=== PATIENT | male | born 1980 | race Caucasian/White ===

== ENCOUNTER 2020-08-19 19:27 | Inpatient (IN) | payer OTHER ==
[2020-08-19] MEDS ORDERED: SODIUM CHLORIDE 0.9% 1,000 ML IV STA (19:32)
[2020-08-19] MEDS ORDERED: DIPH,PERTUS(ACELL)TETVAC-LF 0.5 ML VIAL IM ONE (19:32)
[2020-08-19 19:42] LABS: Glucose,Whole Blood 161 mg/dL (75-99)
--- NOTE | 2020-08-19 19:43 | ED ---
General Adult HPI - General Chief complaint: Head Injury Stated complaint: Trauma Time Seen by Provider: 08/19/20 19:30 Source: patient, EMS Mode of arrival: EMS Limitations: no limitations - History of Present Illness Initial comments: Patient presents to the ED by ambulance for evaluation. Per EMS, the patient reportedly fell off of a hover board, striking his head on the ground, and he was being transported to the ED for evaluation of head injury. Per EMS, just prior to ED arrival, the patient became bradycardic, then briefly went asystolic. Per EMS, they began chest compressions, then the patient quickly regained a pulse and heartbeat. Patient is currently only complaining of having a posterior headache where he struck his head. Patient admits to LOC at the time of his head injury. Patient admits to marijuana use, but he denies any ot her illicit drug use. Patient denies medication abuse or overdose. Patient denies alcohol use. Patient denies medication use. Patient states that he is unsure of his last tetanus shot. Patient denies focal numbness/weakness/neuro deficit, visual changes, neck/back/extremity pain, chest pain, dyspnea, palpitations, abdominal pain, nausea/vomiting, or any other symptoms or complaints. Patient was upgraded to a level II trauma alert upon arrival to the ED. - Related Data Home Medications Medication Instructions Recorded Confirmed No Known Home Medications 08/19/20 08/19/20 Allergies Allergy/AdvReac Type Severity Reaction Status Date / Time No Known Allergies Allergy Verified 08/19/20 20:38 Review of Systems ROS Statement: Those systems with pertinent positive or pertinent negative responses have been documented in the HPI. ROS Other: All systems not noted in ROS Statement are negative. Past Medical History Past Medical History: No Reported History Additional Past Medical History / Comment(s): heart murmer x 2 as child. History of Any Multi-Drug Resistant Organisms: None Reported Past Surgical History: Appendectomy Additional Past Surgical History / Comment(s): ear canal surgery Past Psychological History: No Psychological Hx Reported Smoking Status: Never smoker Past Alcohol Use History: None Reported Past Drug Use History: None Reported General Exam Limitations: no limitations General appearance: alert Head exam: Present: other (Left occipital scalp abrasion) Eye exam: Present: normal appearance, PERRL, EOMI ENT exam: Present: mucous membranes moist, TM's normal bilaterally Neck exam: Present: normal inspection, other (Trachea is in midline). Absent: tenderness Respiratory exam: Present: normal lung sounds bilaterally. Absent: respiratory distress, wheezes, rales, rhonchi, stridor, chest wall tenderness Cardiovascular Exam: Present: regular rate, normal rhythm, normal heart sounds, other (Normal radial pulses bilaterally) GI/Abdominal exam: Present: soft. Absent: distended, tenderness, guarding Extremities exam: Present: full ROM, other (Pelvis is stable and nontender). Absent: tenderness, pedal edema Back exam: Present: normal inspection. Absent: tenderness Neurological exam: Present: alert, oriented X3, CN II-XII intact. Absent: motor sensory deficit Psychiatric exam: Present: normal affect, normal mood Skin exam: Present: warm, diaphoretic, pallor Course Vital Signs 08/19/20 19:28 Temperature 98.2 F Pulse Rate 86 Respiratory 18 Rate Blood Pressure 138/93 O2 Sat by Pulse 94 L Oximetry - Reevaluation(s) Reevaluation #1: 08/19/20 19:46 Case, H&P and pending ED workup were discussed with Dr. Maria (trauma surgery). I have explained to her that a trauma 2 alert was called given EMS's report of patient becoming asystolic on route to the ED. I also explained to her that the patient will need to be admitted to the hospital for cardiac monitoring at minimum. She states that if the patient's head CT is negative, then the patient should be admitted to the medical service with her (trauma surgery) on consult. She has no further recommendations at this time. 08/19/20 21:21 Patient remains alert and breathing comfortably. Patient denies development of any new symptoms while in the ED. Patient remains in normal sinus rhythm on the telemetry monitor with normal vital signs. Patient, and [id number] are aware the patient's test results, and they all agree with hospital admission at this time. 08/19/20 21:25 Case, H&P, test results, ED management and my discussion with Dr. Maria as above were discussed with Dr. Flores. He accepts hospital admission. He agrees with cardiology and trauma surgery consultation. He has no further recommendations at this time. 08/19/20 21:50 Case, H&P and test results were discussed with Dr. Granda (b2b sales professional). He does not feel that this patient needs be admitted to the ICU, and he recommends placing the patient on the third floor with telemetry. He has no further recommendations at this time. EKG Findings - EKG Comments: EKG Findings:: Normal sinus rhythm, ventricular rate of 93 bpm, normal IL and QRS intervals, normal QT interval, normal axis, no ST or T-wave abnormality, U wave is present Medical Decision Making - Medical Decision Making Patient's CT head and cervical spine are negative. Patient's chest x-ray is also negative. Patient's labs are fairly unremarkable other than an elevated lactic acid level of 3.0. Patient has been treated with IV fluids and a tetanus shot in the ED. Given EMS's report that the patient became asystolic on route to the ED, will admit the patient to the hospital under care of the medical service (by recommendation of the flight communications officer trauma surgeon) for cardiac monitoring with cardiology and trauma surgery consultation. Dr. Flores has accepted hospital admission. - Lab Data Result diagrams: 08/19/20 19:40 08/19/20 19:40 Lab Results 08/19/20 08/19/20 08/19/20 Range/Units 19:38 19:38 19:40 WBC 15.6 H (3.8-10.6) k/uL RBC 5.05 (4.30-5.90) m/uL Hgb 15.7 (13.0-17.5) gm/dL Hct 44.7 (39.0-53.0) % MCV 88.5 (80.0-100.0) fL MCH 31.1 (25.0-35.0) pg MCHC 35.2 (31.0-37.0) g/dL RDW 12.5 (11.5-15.5) % Plt Count 270 (150-450) k/uL MPV 8.3 PT (9.0-12.0) sec INR (<1.2) APTT (22.0-30.0) sec Sodium (137-145) mmol/L Potassium (3.5-5.1) mmol/L Chloride (98-107) mmol/L Carbon Dioxide (22-30) mmol/L Anion Gap mmol/L BUN (9-20) mg/dL Creatinine (0.66-1.25) mg/dL Est GFR (CKD-EPI)AfAm (>60 ml/min/1.73 sqM) Est GFR (CKD-EPI)NonAf (>60 ml/min/1.73 sqM) Glucose (74-99) mg/dL POC Glucose (mg/dL) 161 H (75-99) mg/dL POC Glu Copy Cutter ID Marroquin Fern Plasma Lactic Acid Nick (0.7-2.0) mmol/L Calcium (8.4-10.2) mg/dL Magnesium (1.6-2.3) mg/dL Total Bilirubin (0.2-1.3) mg/dL AST (17-59) U/L ALT (4-49) U/L Alkaline Phosphatase (38-126) U/L Troponin I (0.000-0.034) ng/mL NT-Pro-B Natriuret Pep pg/mL Total Protein (6.3-8.2) g/dL Albumin (3.5-5.0) g/dL Serum Alcohol mg/dL Blood Type Blood Type Confirm O Positive Blood Type Recheck Bld Type Recheck Status Antibody Screen Spec Expiration Date 08/19/20 08/19/20 08/19/20 Range/Units 19:40 19:40 19:40 WBC (3.8-10.6) k/uL RBC (4.30-5.90) m/uL Hgb (13.0-17.5) gm/dL Hct (39.0-53.0) % MCV (80.0-100.0) fL MCH (25.0-35.0) pg MCHC (31.0-37.0) g/dL RDW (11.5-15.5) % Plt Count (150-450) k/uL MPV PT 10.4 (9.0-12.0) sec INR 1.0 (<1.2) APTT 21.1 L (22.0-30.0) sec Sodium 140 (137-145) mmol/L Potassium 3.4 L (3.5-5.1) mmol/L Chloride 103 (98-107) mmol/L Carbon Dioxide 26 (22-30) mmol/L Anion Gap 11 mmol/L BUN 18 (9-20) mg/dL Creatinine 1.17 (0.66-1.25) mg/dL Est GFR (CKD-EPI)AfAm >90 (>60 ml/min/1.73 sqM) Est GFR (CKD-EPI)NonAf 79 (>60 ml/min/1.73 sqM) Glucose 156 H (74-99) mg/dL POC Glucose (mg/dL) (75-99) mg/dL POC Glu Copy Cutter ID Plasma Lactic Acid Nick 3.0 H* (0.7-2.0) mmol/L Calcium 9.5 (8.4-10.2) mg/dL Magnesium 2.1 (1.6-2.3) mg/dL Total Bilirubin 0.2 (0.2-1.3) mg/dL AST 33 (17-59) U/L ALT 28 (4-49) U/L Alkaline Phosphatase 88 (38-126) U/L Troponin I (0.000-0.034) ng/mL NT-Pro-B Natriuret Pep pg/mL Total Protein 7.0 (6.3-8.2) g/dL Albumin 4.4 (3.5-5.0) g/dL Serum Alcohol <10 mg/dL Blood Type Blood Type Confirm Blood Type Recheck Bld Type Recheck Status Antibody Screen Spec Expiration Date 08/19/20 08/19/20 08/19/20 Range/Units 19:40 19:40 19:43 WBC (3.8-10.6) k/uL RBC (4.30-5.90) m/uL Hgb (13.0-17.5) gm/dL Hct (39.0-53.0) % MCV (80.0-100.0) fL MCH (25.0-35.0) pg MCHC (31.0-37.0) g/dL RDW (11.5-15.5) % Plt Count (150-450) k/uL MPV PT (9.0-12.0) sec INR (<1.2) APTT (22.0-30.0) sec Sodium (137-145) mmol/L Potassium (3.5-5.1) mmol/L Chloride (98-107) mmol/L Carbon Dioxide (22-30) mmol/L Anion Gap mmol/L BUN (9-20) mg/dL Creatinine (0.66-1.25) mg/dL Est GFR (CKD-EPI)AfAm (>60 ml/min/1.73 sqM) Est GFR (CKD-EPI)NonAf (>60 ml/min/1.73 sqM) Glucose (74-99) mg/dL POC Glucose (mg/dL) (75-99) mg/dL POC Glu Copy Cutter ID Plasma Lactic Acid Nick (0.7-2.0) mmol/L Calcium (8.4-10.2) mg/dL Magnesium (1.6-2.3) mg/dL Total Bilirubin (0.2-1.3) mg/dL AST (17-59) U/L ALT (4-49) U/L Alkaline Phosphatase (38-126) U/L Troponin I <0.012 (0.000-0.034) ng/mL NT-Pro-B Natriuret Pep 39 pg/mL Total Protein (6.3-8.2) g/dL Albumin (3.5-5.0) g/dL Serum Alcohol mg/dL Blood Type O Positive Blood Type Confirm Blood Type Recheck No Previous Record Bld Type Recheck Status CABO Indicated Antibody Screen NEGATIVE Spec Expiration Date 08/22/2020 - 6133 - Radiology Data Radiology results: report reviewed (Noncontrast head CT is negative; noncontrast cervical spine CT is negative; chest x-ray is negative) Critical Care Time Critical Care Time: Yes Total Critical Care Time: 45 Disposition Clinical Impression: Head injury, Scalp contusion, Scalp abrasion, Cardiac arrest Disposition: ADMITTED IP TO THIS [facility] Condition: Stable Is patient prescribed a controlled substance at d/c from ED?: No Referrals: None,Stated [Primary Care Provider] - 1-2 days Time of Disposition: 21:26
--- NOTE | 2020-08-19 19:54 | XR ---
EXAMINATION TYPE: XR chest 1V portable DATE OF EXAM: 08/19/2020 COMPARISON: NONE HISTORY: Pain. Fall. TECHNIQUE: Single view FINDINGS: Heart and mediastinum are normal. Lungs are clear. Diaphragm is normal. Bony thorax is inta ct. IMPRESSION: Normal chest. Normal heart.
[2020-08-19 20:04] LABS: ALT 28 U/L (4-49); AST 33 U/L (17-59); African American GFR (CKD) >90 (>60 ml/min/1.73 sqM); Albumin 4.4 g/dL (3.5-5.0); Alcohol <10 mg/dL; Alkaline Phosphatase 88 U/L (38-126); Anion Gap 11 mmol/L; Blood Urea Nitrogen 18 mg/dL (9-20); Calcium 9.5 mg/dL (8.4-10.2); Carbon Dioxide 26 mmol/L (22-30); Chloride 103 mmol/L (98-107); Glucose 156 mg/dL (74-99); Magnesium 2.1 mg/dL (1.6-2.3); Non-African American GFR(CKD) 79 (>60 ml/min/1.73 sqM); Potassium 3.4 mmol/L (3.5-5.1); Sodium 140 mmol/L (137-145); Total Bilirubin 0.2 mg/dL (0.2-1.3)
--- NOTE | 2020-08-19 20:08 | CT ---
EXAMINATION TYPE: CT brain curtine wo con DATE OF EXAM: 08/19/2020 COMPARISON: None HISTORY: Fall with head injury. CT DLP: 1471.7 mGycm Automated exposure control for dose reduction was used. Images obtained of the brain and cervical spine without contrast. Ventricles and sulci appear normal. There is no mass effect nor midline shift. There is no sign of in tracranial hemorrhage. The calvarium is intact. The skull base is intact. There is mild mucosal thick ening in the left maxillary sinus. Cervical vertebra show some straightening. Disc spaces are normal. Posterior elements are intact. Fac et joints are intact. There is no evidence of a fracture. There is normal aeration of the mastoid sin uses. The skull base is intact. IMPRESSION: Negative CT scan of the cervical spine. Negative CT scan of the brain. Minimal left maxillary sinusitis.
[2020-08-19 20:10] LABS: Prothrombin Time 10.4 sec (9.0-12.0)
[2020-08-19] MEDS ORDERED: SODIUM CHLORIDE 0.9% 1,000 ML IV ONE (20:12)
[2020-08-19 20:30] LABS: Partial Thromboplastin Time 21.1 sec (22.0-30.0)
[2020-08-19 21:07] LABS: Basophils # (A) 0.1 k/uL (0-0.2); Basophils % (A) 1 %; Eosinophils # (A) 0.4 k/uL (0-0.7); Eosinophils % (A) 3 %; HCT 44.7 % (39.0-53.0); HGB 15.7 gm/dL (13.0-17.5); Lymphocytes # (A) 6.7 k/uL (1.0-4.8); Lymphocytes % (A) 43 %; MCH 31.1 pg (25.0-35.0); MCHC 35.2 g/dL (31.0-37.0); MCV 88.5 fL (80.0-100.0); Mean Platelet Volume 8.3; Monocytes % (A) 6 %; Neutrophils # (A) 6.8 k/uL (1.3-7.7); Neutrophils % (A) 44 %; Platelet Count 270 k/uL (150-450); RBC 5.05 m/uL (4.30-5.90); RDW 12.5 % (11.5-15.5); WBC 15.6 k/uL (3.8-10.6)
[2020-08-19 22:12] LABS: Appearance,Urine Clear (Clear); Bilirubin,Urine Negative (Negative); Blood,Urine Negative (Negative); Color,Urine Light Yellow; Glucose,Urine (UA) Negative (Negative); Ketones,Urine Negative (Negative); Leukocyte Esterase,Urine Negative (Negative); Nitrite,Urine Negative (Negative); PH, Urine 6.5 (5.0-8.0); Protein,Urine Negative (Negative); Specific Gravity,Urine 1.015 (1.001-1.035); Urobilinogen,Urine <2.0 mg/dL (<2.0)
[2020-08-19 22:28] LABS: Amphetamine Screen,Urine Not Detected (NotDetected); Barbiturate Screen,Urine Not Detected (NotDetected); Benzodiazepines Screen,Urine Not Detected (NotDetected); Cocaine Screen,Urine Not Detected (NotDetected); Methadone Screen, Urine Not Detected (NotDetected); Opiate Screen,Urine Not Detected (NotDetected); Oxycodone Screen, Urine Not Detected (NotDetected); Phencyclidine Screen,Urine Not Detected (NotDetected); Tricyclic Antidepressant,Urine Not Detected (NotDetected); Urn Cannabinoid Scrn Detected (NotDetected)
[2020-08-19] MEDS ORDERED: NALOXONE 0.4 MG/ML 1 ML VIAL IV PRN (23:56)
[2020-08-20] MEDS: SODIUM CHLORIDE 0.9% 1,000 ML IV SCH ×3 (00:03→15:00)
--- NOTE | 2020-08-20 00:06 | P.HPIM ---
History of Present Illness H&P Date: 08/19/20 Chief Complaint: Syncope 39-year-old male no significant past medical history Patient comes in after sustaining 2 episodes of syncope. He was at home outside using however board when he lost his balance and fell he passed out for 45 seconds family was around him to come inside he had the abrasion on his head was bleeding his packet for him, then 5 minutes later he got up on his own went to the kitchen and he was telling his that he's feeling dizzy before finishing the symptoms he collapsed he sat up immediately, however he was confused and not completely with it, he reports that he didn't get fully aware of his surroundings until 10 PM at the hospital a few hours later from the incident. called EMS while in route he had bradycardia and EMS started brief CPR with outpatient medications and then Grandy was achieved Patient denies any history of seizures or syncope denies any palpitations chest pain or trouble breathing. He denies taking any medications or supplements he denies any recent travel or any recent viral illnesses he denies any history of blood clots. He currently feels back to normal and he is wishing to go home In the ED workup was pretty much unremarkable chest x-ray and CT of the brain and C-spine and both were unremarkable Lactic acid was elevated EKG was unremarkable Potassium slightly low at 3.4 Review of Systems Pertinent positives as noted in HPI. All other systems were reviewed and are negative Past Medical History Past Medical History: No Reported History Additional Past Medical History / Comment(s): heart murmer x 2 as child. History of Any Multi-Drug Resistant Organisms: None Reported Past Surgical History: Appendectomy Additional Past Surgical History / Comment(s): ear canal surgery Past Psychological History: No Psychological Hx Reported Smoking Status: Never smoker Past Alcohol Use History: None Reported Past Drug Use History: None Reported - Past Family History Family Family Medical History: No Reported History Medications and Allergies Home Medications Medication Instructions Recorded Confirmed Type No Known Home Medications 08/19/20 08/19/20 History Allergies Allergy/AdvReac Type Severity Reaction Status Date / Time No Known Allergies Allergy Verified 08/19/20 20:38 Physical Exam Vitals: Vital Signs Temp Pulse Resp BP Pulse Ox 08/19/20 19:28 98.2 F 86 18 138/93 94 L Intake and Output 08/19/20 08/19/20 08/19/20 06:59 14:59 22:59 Other: Weight 89.539 kg Constitutional: No acute distress, conversant, pleasant Eyes: Anicteric sclerae, moist conjunctiva, Pupils equal round reactive to light ENMT: NC/abrasion over the left side of the vortex of the head over the occipital region no swelling no active bleeding Oropharynx clear, no erythema, or exudates Neck: Supple, FROM, no masses, or JVD No carotid bruits No thyromegaly Lungs: Clear to auscultation Clear to percussion Normal respiratory effort, no accessory muscle use Cardiovascular: Heart regular in rate and rhythm, No murmurs, gallops, or rubs No peripheral edema Abdominal: Soft Nontender, no guarding, rebound or rigidity Abdomen moving with respiration Normoactive bowel sounds No hepatomegaly, No splenomegaly No palpable mass No abdominal wall hernia noted Skin: Normal temperature, tone, texture, turgor No induration No subcutaneous nodules No rash, lesions No ulcers Extremities: Superficial scraping and bruising over the left hip tender to palpation, no active bleeding No digital cyanosis No clubbing Pedal pulses intact and symmetrical Radial pulses intact and symmetrical No calf tenderness Psychiatric: Alert and oriented to person, place and time Appropriate affect fair judgement Neuro Muscles Strength 5/5 in all 4 extremities Sensation to light touch grossly present throughout Cranial nerves II-XII grossly intact No focal sensory deficits Lymphatics: no palpable cervical or supraclavicular , or inguinal lymph nodes Results CBC & Chem 7: 08/19/20 19:40 08/19/20 19:40 Labs: Abnormal Lab Results - Last 24 Hours (Table) 08/19/20 08/19/20 08/19/20 Range/Units 19:38 19:40 19:40 WBC 15.6 H (3.8-10.6) k/uL APTT 21.1 L (22.0-30.0) sec Potassium (3.5-5.1) mmol/L Glucose (74-99) mg/dL POC Glucose (mg/dL) 161 H (75-99) mg/dL Plasma Lactic Acid Nick (0.7-2.0) mmol/L U Marijuana (THC) Screen (NotDetected) 08/19/20 08/19/20 08/19/20 Range/Units 19:40 19:40 19:40 WBC (3.8-10.6) k/uL APTT (22.0-30.0) sec Potassium 3.4 L (3.5-5.1) mmol/L Glucose 156 H (74-99) mg/dL POC Glucose (mg/dL) (75-99) mg/dL Plasma Lactic Acid Nick 3.0 H* (0.7-2.0) mmol/L U Marijuana (THC) Screen Detected H (NotDetected) Assessment and Plan Assessment: Closed head injury Syncope, possible dehydration, rule out underlying arrhythmia EMS reported bradycardia requiring brief CPR no medications given Rosc achieved Plan Orthostatic vitals CT head and C spine unremarkable for acute pathology EKG normal sinus rhythm school lunch monitor Neurochecks Check echocardiogram Cardiology eval Fall precautions Bathroom privileges with assist Check left hip x-ray Mild hypokalemia Replace by mouth Follow-up levels Monitor vital signs Follow up labs in a.m. Lactic acidosis, IV fluid hydration with saline follow-up levels CODE STATUS: Full code DVT prophylaxis: Mechanical Discussed with: Patient, ER, RN Anticipated length of stay less than [address]: Home A total of 65 minutes was spent on the care of this complex patient more than 50% of the time was spent in counseling and care coordination.
[2020-08-20 00:10] LABS: Anisocytosis (M) Present
[2020-08-20] MEDS ORDERED: POTASSIUM CHLORIDE ER 20 MEQ TAB.ER PO STA (00:12)
[2020-08-20 03:20] LABS: Basophils # (A) 0.1 k/uL (0-0.2); Basophils % (A) 1 %; Eosinophils # (A) 0.1 k/uL (0-0.7); Eosinophils % (A) 0 %; HGB 15.3 gm/dL (13.0-17.5); Lymphocytes # (A) 2.2 k/uL (1.0-4.8); Lymphocytes % (A) 16 %; MCH 29.7 pg (25.0-35.0); MCHC 33.2 g/dL (31.0-37.0); MCV 89.4 fL (80.0-100.0); Mean Platelet Volume 7.5; Monocytes # (A) 0.6 k/uL (0-1.0); Monocytes % (A) 4 %; Neutrophils # (A) 11.1 k/uL (1.3-7.7); Neutrophils % (A) 78 %; Platelet Count 230 k/uL (150-450); RBC 5.14 m/uL (4.30-5.90); RDW 12.9 % (11.5-15.5); WBC 14.1 k/uL (3.8-10.6)
[2020-08-20 03:27] LABS: ALT 26 U/L (4-49); AST 28 U/L (17-59); African American GFR (CKD) >90 (>60 ml/min/1.73 sqM); Albumin 4.4 g/dL (3.5-5.0); Alkaline Phosphatase 77 U/L (38-126); Anion Gap 8 mmol/L; Blood Urea Nitrogen 12 mg/dL (9-20); Calcium 9.4 mg/dL (8.4-10.2); Carbon Dioxide 25 mmol/L (22-30); Chloride 107 mmol/L (98-107); Glucose 115 mg/dL (74-99); Non-African American GFR(CKD) >90 (>60 ml/min/1.73 sqM); Sodium 140 mmol/L (137-145); Total Bilirubin 0.3 mg/dL (0.2-1.3)
[2020-08-20 03:39] LABS: Potassium 4.1 mmol/L (3.5-5.1)
--- NOTE | 2020-08-20 08:27 | P.CRDCN ---
History of Present Illness Consult date: 08/20/20 History of present illness: HISTORY OF PRESENT ILLNESS: This is a 39-year-old male with a past medical history significant for a heart murmur as a child. 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 We have been asked to see the patient in consultation for cardiac arrest. Patient examined at the bedside. Patient was riding on an hover board yesterday and fell off striking his head on the ground. is at the bedside and provides additional history. She states that after patient fell off the hover board he was unconscious for approximately 60 seconds. She states when the patient came to he was confused. The patient went inside the house and was sitting on the couch. She states that he remained confused. The patient then got up and started walking and collapsed to the ground. The states the patient was unconscious again. They called EMS at that time. Patient apparently became bradycardic and then went asystole and received 90 seconds of CPR with return of ROSC. Patient does not remember much after he got on the hoverboard and states the events of yesterday are quite blurry. He states around 11pm last night he felt back to normal. This morning, he denies chest pain or pressure. Denies shortness of breath. Denies dizziness or lightheadedness. He reports hip pain secondary to his fall yesterday. EKG reveals sinus mechanism with no signs of acute ischemia Chest xray normal chest. Normal heart. CT brain: Negative computed tomography scan of cervical spine and brain. Minimal left maxillary sinusitis. Laboratory data: WBC 14.1. Hemoglobin 15.3. Platelet count 230. Sodium 140. Potassium 4.1. BUN 12. Creatinine 0.90. Lactic acid 3.0. Repeat 2.4. Troponin negative 3. Current home cardiac medications include none REVIEW OF SYSTEMS: At the time of my exam: CONSTITUTIONAL: Denies fever or chills. HEENT: Denies blurred vision, vision changes, or eye pain. Denies hemoptysis CARDIOVASCULAR: Denies chest pain. Denies orthopnea. Denies PND. Denies palpitations RESPIRATORY: Denies shortness of breath. GASTROINTESTINAL: Denies abdominal pain. Denies nausea or vomiting. HEMATOLOGIC: Denies bleeding disorders. GENITOURINARY: Denies any blood in urine. SKIN: Denies pruitis. Denies rash. PHYSICAL EXAM: VITAL SIGNS: Reviewed. GENERAL: Well-developed in no acute distress. HEENT: Head is normocephalic. Pupils are equal, round. Sclerae anicteric. Mucous membranes of the mouth are moist. Neck supple. No JVD or thyromegaly LUNGS: Respirations even and unlabored. Lungs essentially clear to auscultation bilaterally. HEART: Regular rate and rhythm. S1 and S2 heard. ABDOMEN: Soft. Nondistended. Nontender. EXTREMITIES: Normal range of motion. No clubbing or cyanosis. Peripheral pulses intact. No lower extremity edema NEUROLOGIC: Awake and alert. Oriented x 3. ASSESSMENT: S/P fall off hoverboard with head trauma Syncope Bradycardia with possible asystole requiring brief CPR per EMS Hypokalemia, resolved Elevated lactic acid History of heart murmur as a child Marijuana use PLAN: Continue telemetry monitoring Recommend abstinence from marijuana use Obtain 2-D echo to assess cardiac structure and function Possible outpatient stress test Further recommendations pending patient's course Nurse practitioner note has been reviewed by physician. Signing provider agrees with the documented findings, assessment, and plan of care. Past Medical History Past Medical History: No Reported History Additional Past Medical History / Comment(s): heart murmer x 2 as child. History of Any Multi-Drug Resistant Organisms: None Reported Past Surgical History: Appendectomy Additional Past Surgical History / Comment(s): ear canal surgery Past Anesthesia/Blood Transfusion Reactions: No Reported Reaction Past Psychological History: No Psychological Hx Reported Smoking Status: Never smoker Past Alcohol Use History: None Reported Past Drug Use History: None Reported - Past Family History Family Family Medical History: No Reported History Medications and Allergies Home Medications Medication Instructions Recorded Confirmed Type No Known Home Medications 08/19/20 08/19/20 History Allergies Allergy/AdvReac Type Severity Reaction Status Date / Time No Known Allergies Allergy Verified 08/19/20 20:38 Physical Exam Vitals: Vital Signs Temp Pulse Pulse Pulse Pulse Pulse Resp 08/20/20 03:56 98.5 F 88 97 86 19 08/20/20 00:00 99.1 F 95 18 08/19/20 23:19 98.1 F 87 18 08/19/20 19:28 98.2 F 86 18 BP BP BP BP BP Pulse Ox 08/20/20 03:56 138/83 142/95 135/77 97 08/20/20 00:00 150/89 97 06/12/21 23:19 132/78 96 08/19/20 19:28 138/93 94 L Intake and Output 08/19/20 08/20/20 08/20/20 22:59 06:59 14:59 Intake Total 240 240 Balance 240 240 Intake: Oral 240 240 Other: Voiding Method Toilet # Voids 1 Weight 89.539 kg 84.7 kg Results 08/20/20 02:55 08/20/20 02:55 Cardiac Enzymes 08/19/20 08/19/20 08/19/20 Range/Units 19:40 19:40 22:57 AST 33 (17-59) U/L Troponin I <0.012 <0.012 (0.000-0.034) ng/mL 08/20/20 08/20/20 Range/Units 01:24 02:55 AST 28 (17-59) U/L Troponin I <0.012 (0.000-0.034) ng/mL Coagulation 08/19/20 Range/Units 19:40 PT 10.4 (9.0-12.0) sec APTT 21.1 L (22.0-30.0) sec CBC 08/19/20 08/20/20 Range/Units 19:40 02:55 WBC 15.6 H 14.1 H (3.8-10.6) k/uL RBC 5.05 5.14 (4.30-5.90) m/uL Hgb 15.7 15.3 (13.0-17.5) gm/dL Hct 44.7 46.0 (39.0-53.0) % Plt Count 270 230 (150-450) k/uL Comprehensive Metabolic Panel 08/19/20 08/20/20 Range/Units 19:40 02:55 Sodium 140 140 (137-145) mmol/L Potassium 3.4 L 4.1 (3.5-5.1) mmol/L Chloride 103 107 (98-107) mmol/L Carbon Dioxide 26 25 (22-30) mmol/L BUN 18 12 (9-20) mg/dL Creatinine 1.17 0.90 (0.66-1.25) mg/dL Glucose 156 H 115 H (74-99) mg/dL Calcium 9.5 9.4 (8.4-10.2) mg/dL AST 33 28 (17-59) U/L ALT 28 26 (4-49) U/L Alkaline Phosphatase 88 77 (38-126) U/L Total Protein 7.0 7.0 (6.3-8.2) g/dL Albumin 4.4 4.4 (3.5-5.0) g/dL Current Medications Generic Name Dose Route Start Last Admin Trade Name Freq PRN Reason Stop Dose Admin Sodium Chloride 1,000 mls @ 130 mls/hr 08/19/20 23:30 08/20/20 06:09 Saline 0.9% IV 130 mls/hr .[id number] CLAIRE Administration Naloxone HCl 0.2 mg 08/19/20 23:56 Naloxone 0.4 Mg/Ml 1 Ml Vial IV Q2M PRN Opioid Reversal Intake and Output 08/19/20 08/20/20 08/20/20 22:59 06:59 14:59 Intake Total 240 240 Balance 240 240 Intake: Oral 240 240 Other: Voiding Method Toilet # Voids 1 Weight 89.539 kg 84.7 kg 08/20/20 02:55 08/20/20 02:55
--- NOTE | 2020-08-20 08:31 | XR ---
EXAMINATION TYPE: XR Hip Limited LT DATE OF EXAM: 08/20/2020 COMPARISON: NONE HISTORY: 39-year-old male with left hip pain after fall TECHNIQUE: Single AP view FINDINGS: No acute fracture is seen on this single view. Visualized SI joints and pubic symphysis appear intact . The left iliac crest is excluded. IMPRESSION: Single AP view without acute fracture seen.
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
--- NOTE | 2020-08-20 11:55 | P.PN ---
Subjective Progress Note Date: 08/20/20 No new complaints. Pt feels back to baseline. Appears agitated at need for hospitalization. Objective - Vital Signs Vital signs: Vital Signs Temp 97.8 F 08/20/20 11:23 Pulse 92 08/20/20 11:23 Resp 18 08/20/20 11:23 BP 157/91 08/20/20 11:23 Pulse Ox 96 08/20/20 11:23 Intake & Output 08/19/20 08/20/20 08/20/20 18:59 06:59 18:59 Intake Total 240 1300 Output Total 600 Balance 240 700 Weight 84.7 kg Intake: IV 1060 Invasive Line 1 10 Invasive Line 2 10 Sodium Chloride 0.9% 1, 1040 000 ml @ 130 mls/hr IV . Q7H42M [facility] Rx#:[id number] Oral 240 240 Output: Urine 600 Other: Voiding Method Toilet Toilet # Voids 1 2 - Exam Gen: awake, alert HEENT: normocephalic, atraumatic, good hearing acuity, moist mucous membranes Resp: good air exchange, breathing comfortably with no accessory muscle use, clear to auscultation bilaterally CVS: good distal perfusion x 4,, regular rate and rhythm without murmurs GI: soft, NTTP, ND, appropriate bowel sounds : no SPT, no CVAT, wiley catheter not present MSK: no pitting edema, no clubbing Neuro: non-focal, moving all extremities Psych: cooperative, euthymic mood - Labs CBC & Chem 7: 08/20/20 02:55 08/20/20 02:55 Labs: Abnormal Lab Results - Last 24 Hours (Table) 08/19/20 08/19/20 08/19/20 Range/Units 19:38 19:40 19:40 WBC 15.6 H (3.8-10.6) k/uL Neutrophils # (1.3-7.7) k/uL Lymphocytes # 6.7 H (1.0-4.8) k/uL APTT 21.1 L (22.0-30.0) sec Potassium (3.5-5.1) mmol/L Glucose (74-99) mg/dL POC Glucose (mg/dL) 161 H (75-99) mg/dL Plasma Lactic Acid Nick (0.7-2.0) mmol/L U Marijuana (THC) Screen (NotDetected) 08/19/20 08/19/20 08/19/20 Range/Units 19:40 19:40 19:40 WBC (3.8-10.6) k/uL Neutrophils # (1.3-7.7) k/uL Lymphocytes # (1.0-4.8) k/uL APTT (22.0-30.0) sec Potassium 3.4 L (3.5-5.1) mmol/L Glucose 156 H (74-99) mg/dL POC Glucose (mg/dL) (75-99) mg/dL Plasma Lactic Acid Nick 3.0 H* (0.7-2.0) mmol/L U Marijuana (THC) Screen Detected H (NotDetected) 08/19/20 08/20/20 08/20/20 Range/Units 22:57 02:55 02:55 WBC 14.1 H (3.8-10.6) k/uL Neutrophils # 11.1 H (1.3-7.7) k/uL Lymphocytes # (1.0-4.8) k/uL APTT (22.0-30.0) sec Potassium (3.5-5.1) mmol/L Glucose 115 H (74-99) mg/dL POC Glucose (mg/dL) (75-99) mg/dL Plasma Lactic Acid Nick 2.4 H* (0.7-2.0) mmol/L U Marijuana (THC) Screen (NotDetected) Assessment and Plan Assessment: Closed head injury Syncope, possible dehydration, rule out underlying arrhythmia EMS reported bradycardia requiring brief CPR no medications given Rosc achieved Plan Orthostatic vitals were unremarkable CT head and C spine unremarkable for acute pathology EKG normal sinus rhythm monitoring and evaluation advisor for total 36 hours, until 8 AM tomorrow morning Neurochecks Check echocardiogram, pending Cardiology eval, appreciate recommendations Fall precautions Bathroom privileges with assist Check left hip x-ray, negative for fracture Mild hypokalemia Replace by mouth Follow-up levels Monitor vital signs Follow up labs in a.m. Lactic acidosis, IV fluid hydration with saline follow-up levels CODE STATUS: Full code DVT prophylaxis: Mechanical Discussed with: Patient, ER, RN Anticipated length of stay less than [address]: Home
[2020-08-21] MEDS: SODIUM CHLORIDE 0.9% 1,000 ML IV SCH ×3 (02:31→15:08)
[2020-08-21 06:31] VITALS: RESP 18; TEMP 98.2
--- NOTE | 2020-08-21 11:33 | ECHOF ---
Referral Reason:syncope, s/p CPR MEASUREMENTS -------- HEIGHT: 180.3 cm WEIGHT: 84.4 kg BP: RVIDd: 3.1 cm (< 3.3) IVSd: 1.1 cm (0.6 - 1.1) LVIDd: 3.3 cm (3.9 - 5.3) LVPWd: 1.3 cm (0.6 - 1.1) IVSs: 1.6 cm LVIDs: 2.4 cm LVPWs: 1.8 cm LAESV Index (A-L): 19.01 ml/m Ao Diam: 2.8 cm (2.0 - 3.7) AV Cusp: 2.1 cm (1.5 - 2.6) LA Diam: 3.4 cm (2.7 - 3.8) MV EXCURSION: 21.996 mm (> 18.000) MV EF SLOPE: 156 mm/s (70 - 150) EPSS: 0.3 cm MV E Romulo: 0.96 m/s MV DecT: 184 ms MV A Romulo: 0.76 m/s MV E/A Ratio: 1.25 RAP: 5.00 mmHg RVSP: 30.37 mmHg FINDINGS -------- Sinus rhythm. This was a technically good study. The left ventricular size is normal. There is mild concentric left ventricular hypertrophy. Overa ll left ventricular systolic function is normal with, an EF between 55 - 60 %. The diastolic fillin g pattern is normal for the age of the patient 10.47. The right ventricle is normal in size. The left atrial size is normal. Normal LA size by volume 22+/-6 ml/m2. The right atrial size is normal. The aortic valve is trileaflet, and appears structurally normal. No aortic stenosis or regurgitation. The mitral valve is normal. There is trace mitral regurgitation. The tricuspid valve appears structurally normal. Trace tricuspid regurgitation present. Right ronny tricular systolic pressure is normal at < 35 mmHg. There is no pulmonic regurgitation present. The aortic root size is normal. Normal inferior vena cava with normal inspiratory collapse consistent with estimated right atrial pre ssure of 5 mmHg. There is no pericardial effusion. CONCLUSIONS -------- 1. There is mild concentric left ventricular hypertrophy. 2. Overall left ventricular systolic function is normal with, an EF between 55 - 60 %. 3. The diastolic filling pattern is normal for the age of the patient 10.47 4. Normal LA size by volume 22+/-6 ml/m2. 5. The aortic valve is trileaflet, and appears structurally normal. No aortic stenosis or regurgitati on. 6. There is trace mitral regurgitation. 7. Trace tricuspid regurgitation present. 8. There is no pericardial effusion. PREFORM MACHINE OPERATOR: Lizbeth Mace RDCS
--- NOTE | 2020-08-21 11:39 | P.PN ---
Subjective This is a pleasant 39-year-old male with no significant past medical history. He is seen and examined resting comfortably laying flat in bed with his in the room. He states he slept well with no symptoms of chest discomfort or shortness of breath. He denies palpitations, nausea, vomiting or dizziness. Telemetry tracings reveal persistent sinus mechanism with no significant arrhythmia or pauses noted. Blood pressure 120/67 heart rate 77 afebrile maintaining oxygen saturation on room air. GENERAL: Well-appearing, well-nourished and in no acute distress. NECK: Supple without JVD or thyromegaly. LUNGS: Breath sounds clear to auscultation bilaterally. Respiration equal and unlabored. No wheezes, rales or rhonchi. HEART: Regular rate and rhythm without murmurs, rubs or gallops. S1 and S2 heard. EXTREMITIES: Normal range of motion, no edema. No clubbing or cyanosis. Peripheral pulses intact. ASSESSMENT Status post fall with head trauma Syncope Bradycardia with possible asystole requiring brief episode of CPR Hypokalemia, resolved Lactic acidosis Marijuana use PLAN An acute coronary event has been ruled out. Telemetry tracings reveal no evidence of arrhythmia, bradycardia or significant pauses. Echocardiogram has been obtained and will be reviewed. Apply 30 day event monitor upon discharge. Consider neurology evaluation secondary to head trauma. Nurse Practitioner note has been reviewed, I agree with a documented findings and plan of care. Patient was seen and examined. Objective - Vital Signs Vital signs: Vital Signs Temp 98.2 F 08/21/20 04:00 Pulse 77 08/21/20 04:00 Resp 18 08/21/20 04:00 BP 120/67 08/21/20 04:00 Pulse Ox 96 08/21/20 08:53 Intake & Output 08/20/20 08/21/20 08/21/20 18:59 06:59 18:59 Intake Total 2160 Output Total 600 Balance 1560 Intake: IV 1080 Invasive Line 1 20 Invasive Line 2 20 Sodium Chloride 0.9% 1, 1040 000 ml @ 130 mls/hr IV . Q7H42M [facility] Rx#:[id number] Oral 1080 Output: Urine 600 Other: Voiding Method Toilet Toilet # Voids 2 1 - Labs CBC & Chem 7: 08/20/20 02:55 08/20/20 02:55
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
[2020-08-21 15:14] VITALS: BP 130/79; PULSE 72
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
== END 2020-08-21 17:41 | disposition home or self-care (01) | DRG 85 ==
LOC: EC 19:27 → 3SCARD 21:27
PROVIDERS: ADMIT Internal Medicine; ATTEND Internal Medicine
PROC: 5A12012 Performance of Cardiac Output, Single, Manual (ICD-10-PCS; principal; 2020-08-19)
DX: S06.2X Diffuse traumatic brain injury (principal); I46.9 Cardiac arrest, cause unspecified; E87.2 Acidosis; Z20.822 Contact with and (suspected) exposure to COVID-19; S70.02XA Contusion of left hip, initial encounter; V00.848A Other accident with standing micro-mobility pedestrian conveyance, initial encounter; R00.1 Bradycardia, unspecified; E86.0 Dehydration; J32.0 Chronic maxillary sinusitis; F90.9 Attention-deficit hyperactivity disorder, unspecified type; E87.6 Hypokalemia; Z90.49 Acquired absence of other specified parts of digestive tract; Z86.79 Personal history of other diseases of the circulatory system; Z87.820 Personal history of traumatic brain injury; V00.841A Fall from standing electric scooter, initial encounter; Y92.000 Kitchen of unspecified non-institutional (private) residence as the place of occurrence of the external cause; W01.0XXA Fall on same level from slipping, tripping and stumbling without subsequent striking against object, initial encounter; W22.09XA Striking against other stationary object, initial encounter
CPT/HCPCS: 36415; 70450; 71045; 72125; 73501; 80053; 80306; 80320; 81003; 83605; 83735; 83880; 84484; 85025; 85610; 85730; 86850; 86900; 86901; 87635; 93005; 93270; 93306; 94760; 95816; 96360; 96361; 99291